=== PATIENT | male | born 1945 | race Caucasian/White ===

== ENCOUNTER 2017-03-15 14:40 | Emergency (ER) | payer MEDICARE, OTHER ==
[2017-03-15] MEDS ORDERED: BENADRYL 50 MG/ML IM ONE (15:09)
[2017-03-15] MEDS ORDERED: solu-CORTEF 250MG IM ONE (15:09)
[2017-03-15] MEDS ORDERED: BENADRYL 50 MG/ML ONE (15:12)
[2017-03-15] MEDS ORDERED: solu-CORTEF 250MG ONE (15:13)
--- NOTE | 2017-03-15 15:14 | ERPHSYRPT ---
- History of Present Illness Time Seen by Provider: 03/15/17 15:10 Source: patient, family Patient Subjective Stated Complaint: pt states for the past 5 days he developeda reaction. states nothing new to environment. pt c/o itching and redness to face anf upper trunk. Triage Nursing Assessment: pt pink, warm, dry. Breathing wnl. no stridor noted. face red with skin peeling. redness to upper trunk and under arms. Physician History: pt states for the past 5 days he developeda reaction. states nothing new to environment. pt c/o itching and redness to face anf upper trunk. Timing/Duration: day(s) (5-6 days) Severity: moderate Associated Symptoms: denies symptoms Allergies/Adverse Reactions: codeine Adverse Reaction (Intermediate, Verified 07/06/13 08:46) Nausea and Vomiting lisinopril Adverse Reaction (Intermediate, Verified 07/06/13 08:46) Cough Home Medications: Albuterol 8 gm Mdi Hfa [Ventolin Hfa MDI] 8 gm IH QID 01/08/15 [History] Aspirin 81 mg PO DAILY 01/08/15 [History] Esomeprazole Magnesium [Nexium] 20 mg PO UD 01/08/15 [History] Fluticasone/Salmeterol Disc [Advair 250-50 Diskus 14 Dose] 1 each IH BID 01/08/15 [History] Hydrochlorothiazide 12.5 mg PO DAILY 01/08/15 [History] Losartan Potassium 25 mg PO DAILY 01/08/15 [History] Metformin HCl 500 mg [Glucophage 500 MG] 500 mg PO BID 01/08/15 [History] Multivit-Min/FA/Lycopen/Lutein [Centrum Silver Tablet] 1 each PO DAILY 01/08/15 [History] Tamsulosin HCl [Flomax] 0.4 mg PO DAILY 01/08/15 [History] Tiotropium [place] Inhaler [Spiriva 18 Mcg/Cap Inhaler] 18 mcg PO DAILY [History] Zolpidem Tartrate [Ambien] 10 mg PO HS 01/08/15 [History] Desvenlafaxine Succinate [Pristiq ER] 50 mg PO DAILY 03/15/17 [History] Glipizide 10 mg [Glucotrol 10 MG] 10 mg PO DAILY 03/15/17 [History] Insulin Aspart [NovoLOG Insulin] 0 units SQ TIDWM 03/15/17 [History] Insulin Glargine,Hum.rec.anlog [Lantus] 50 unit SQ DAILY 03/15/17 [History] Hx Tetanus, Diphtheria Vaccination/Date Given: Yes (up to date) Hx Influenza Vaccination/Date Given: Yes Hx Pneumococcal Vaccination/Date Given: Yes Immunizations Up to Date: Yes - Review of Systems Constitutional: No Symptoms Eyes: No Symptoms Ears, Nose, & Throat: No Symptoms Respiratory: No Symptoms Cardiac: No Symptoms Abdominal/Gastrointestinal: No Symptoms Genitourinary Symptoms: No Symptoms Musculoskeletal: No Symptoms Skin: Rash, Skin Lesions, Dryness Neurological: No Symptoms Endocrine: No Symptoms - Past Medical History Pertinent Past Medical History: Yes Neurological History: No Pertinent History ENT History: No Pertinent History Cardiac History: High Cholesterol, Hypertension Respiratory History: COPD Endocrine Medical History: Diabetes Type II Musculoskeletal History: Other GI Medical History: GERD History: No Pertinent History Psycho-Social History: Anxiety Male Reproductive Disorders: Prostate Problems Other Medical History: Hiatal hernia - Past Surgical History Past Surgical History: Yes Neuro Surgical History: No Pertinent History Cardiac: No Pertinent History Respiratory: No Pertinent History Gastrointestinal: No Pertinent History Genitourinary: No Pertinent History Musculoskeletal: Orthopedic Surgery Male Surgical History: No Pertinent History Other Surgical History: vu shoulder surgery, nerve stimulator to back - Social History Smoking Status: Former smoker Exposure to second hand smoke: No Drug Use: none Patient Lives Alone: No - Nursing Vital Signs Nursing Vital Signs: Initial Vital Signs Temperature 98.6 F 03/15/17 14:49 Pulse Rate 109 H 03/15/17 14:49 Respiratory Rate 22 03/15/17 14:49 Blood Pressure 173/88 03/15/17 14:49 O2 Sat by Pulse Oximetry 97 03/15/17 14:49 Pain Scale Pain Intensity 5 - Physical Exam General Appearance: no apparent distress Eye Exam: PERRL/EOMI Ears, Nose, Throat Exam: normal ENT inspection Neck Exam: normal inspection Respiratory Exam: normal breath sounds Cardiovascular Exam: regular rate/rhythm Extremity Exam: normal inspection Neurologic Exam: alert, oriented x 3 Skin Exam: other (peeling skin on face, rash on torso) SpO2: 97 Oxygen Delivery: Room Air - Course Nursing assessment & vital signs reviewed: Yes Ordered Tests: Medication Summary Discontinued Medications Generic Name Dose Route Start Last Admin Trade Name Ace PRN Reason Stop Dose Admin Diphenhydramine HCl 25 mg 03/15/17 15:09 Benadryl 50 Mg/Ml IM 03/15/17 15:10 STAT ONE Hydrocortisone Sodium Succinate 250 mg 03/15/17 15:09 Solu-Cortef 250mg IM 03/15/17 15:10 STAT ONE - Progress Progress: unchanged Counseled pt/family regarding: diagnosis, need for follow-up - Departure Time of Disposition: 15:14 Departure Disposition: Home Clinical Impression: Allergic dermatitis Condition: Stable Critical Care Time: No Referrals: BRANDIE LANCASTER [Primary Care Provider] - Instructions: Seborrheic Dermatitis, Contact Dermatitis (DC) Additional Instructions: RASH 1. Depending on the reason for the rash, the instructions will differ. 2. If an antibiotic has been prescribed, take it as directed until gone. 3. If anti-fungals or shampoos are prescribed, use only as directed and follow specific instructions on package container. 4. Avoid hot showers/baths, as this may increase itching. 5. Calamine lotion or Aveeno Oatmeal baths may help itching. 6. See your family physician if these signs or symptoms persist for more than four days. Please follow the instructions given to you. Please take your medication as prescribed if given. If symptoms recur or get worse, come back to the emergency room if you cannot reach your primary care physician, or call your primary care physician for an appointment. Again if your symptoms get worse, come back to the emergency room. Thanks for visiting emergency room, and let us take care of you. Prescriptions: Methylprednisolone Packet [Medrol Dosepack] 4 mg PO UD #30 packet
[2017-03-15 15:58] VITALS: BP 175/94; PULSE 99; O2SAT 96
== END 2017-03-15 15:45 | disposition home or self-care (01) ==
LOC: ED 14:40
DX: L23.9 Allergic contact dermatitis, unspecified cause (principal)
CPT/HCPCS: 96372; 99284; J1200; J1720

== ENCOUNTER 2017-04-29 16:16 | Observation (INO) | payer MEDICARE, OTHER ==
[2017-04-29] MEDS: PROVENTIL 2.5 MG/3 ML NEB IH SCH (17:21)
[2017-04-29] MEDS: Advair Hfa 115/21 Common canister IH SCH (17:21)
[2017-04-29] MEDS ORDERED: TYLENOL 325 MG PO PRN (18:16)
[2017-04-29] MEDS ORDERED: DUONEB 0.5-3 MG/3 ml Neb IH PRN (18:20)
[2017-04-29] MEDS ORDERED: Sodium Chloride 0.9% 1000 ML 1,000 ML IV SCH (18:30)
[2017-04-29] MEDS ORDERED: Spiriva 18 Mcg/Cap Inhaler IH SCH (19:00)
--- NOTE | 2017-04-29 19:43 | XRAY ---
Indication: Short of breath, fever, and flulike illness. Comparison: January 05, 2014. PA/lateral chest again hyperinflated. No focal infiltrate, consolidation, or large effusion. Heart is not enlarged. Vascularity normal. Bony thorax intact again with mild degenerative changes and distal right clavicle resection. New spinal stimulator leads terminate T7-T8 level. Impression: Nonacute hyperinflated chest with chronic features.
[2017-04-29 20:03] LABS: BASOPHIL % 0.2 % (0.0-0.4); Basophil (Absolute #) 0.03 (0-0.4); Eosinophil % 0.6 % (0.00-5.0); Eosinophil (Absolute #) 0.09 (0-0.5); Granulocyte Absolute (ANC) 12.42 (1.4-6.9); Granulocytes % 78.6 % (36.0-66.0); Hematocrit 35.1 % (42-50); Hemoglobin 11.1 gm/dl (12.5-18.0); Lymphocyte (Absolute #) 1.95 (1.0-4.6); Lymphocytes % 12.4 % (24.0-44.0); Mean Cell Volume 80.1 fl (78-100); Mean Corpuscular Hemoglobin 25.3 pg (26-32); Mean Corpuscular Hgb Concent. 31.6 g/dl (32-36); Mean Platelet Volume 10.1 fl (6-9.5); Monocyte (Absolute #) 1.29 (0.0-1.3); Monocytes % 8.2 % (0.0-12.0); Platelet Count 228 K/mm3 (150-450); Red Blood Count 4.38 M/mm3 (4.1-5.6); Red Cell Distribution Width 14.3 % (11.5-14.0); White Blood Count 15.8 K/mm3 (4.0-10.5)
[2017-04-29 20:27] LABS: ALBUMIN 3.2 g/dL (3.4-5.0); ALKALINE PHOSPHATASE 78 U/L (46-116); ANION GAP 16.3 MEQ/L (5-15); BLOOD UREA NITROGEN 12 mg/dL (9-20); CHLORIDE 100 mEq/L (98-107); Calcium 8.8 mg/dL (8.5-10.1); Carbon Dioxide 25.1 mEq/L (21-32); Creatinine 1 1.08 mg/dl (0.55-1.30); Glucose 103 MG/DL (70-110); NT PRO BNP 55 pg/ml (0-125); Potassium 3.9 mEq/L (3.5-5.1); SGOT/AST 27 U/L (15-37); SGPT/ALT 40 U/L (12-78); SODIUM 138 mEq/L (136-145); Total Protein 8.3 gm/dL (6.4-8.2)
[2017-04-29 20:56] LABS: INFLUENZA A NEGATIVE (NEGATIVE); INFLUENZA B NEGATIVE (NEGATIVE); RESPIRATORY SYNCTIAL VIRUS NEGATIVE (Negative)
[2017-04-29] MEDS ORDERED: Glucophage 500 MG PO SCH (22:00)
[2017-04-29] MEDS ORDERED: Ambien 10 MG PO SCH (22:00)
[2017-04-29] MEDS ORDERED: ZOCOR 20MG PO SCH (22:00)
[2017-04-29] MEDS ORDERED: Levofloxacin 500MG/100ML D5W 500 MG/100 ML BAG IV SCH (22:00)
[2017-04-30] MEDS: PROVENTIL 2.5 MG/3 ML NEB IH SCH (05:40)
[2017-04-30] MEDS: Advair Hfa 115/21 Common canister IH SCH (05:41)
[2017-04-30 05:47] VITALS: PULSE 92
[2017-04-30] MEDS ORDERED: Glucophage 500 MG PO SCH (08:00)
[2017-04-30 08:05] VITALS: BP 145/67; O2SAT 93
[2017-04-30] MEDS ORDERED: NovoLOG Insulin SQ SCH (08:30)
[2017-04-30] MEDS ORDERED: NON-FORMULARY ITEM (Esomeprazole Magnesium [Nexium] 20 MG) PO SCH (08:45)
--- NOTE | 2017-04-30 09:20 | PCM.DCORD ---
- Discharge Discharge Date: 04/30/17 Disposition: Home, Self-Care Condition: Good Prescriptions: New Levofloxacin [Levofloxacin 500 MG Tablet] 500 mg PO DAILY #6 tablet Esomeprazole Magnesium [Nexium] 40 mg PO DAILY #30 capsule. Ranitidine HCl 150 mg PO BID #60 tablet Continue Fluticasone/Salmeterol Disc [Advair 250-50 Diskus 14 Dose] 1 each IH BID Multivit-Min/FA/Lycopen/Lutein [Centrum Silver Tablet] 1 each PO DAILY Aspirin 81 mg PO DAILY Albuterol 8 gm Mdi Hfa [Ventolin Hfa MDI] 8 gm IH QID Tamsulosin HCl [Flomax] 0.4 mg PO DAILY Tiotropium [place] Inhaler [Spiriva 18 Mcg/Cap Inhaler] 18 mcg PO DAILY Metformin HCl 500 mg [Glucophage 500 MG] 500 mg PO BID Insulin Aspart [NovoLOG Insulin] 30 units SQ TIDWM Desvenlafaxine Succinate [Pristiq] 50 mg PO DAILY Insulin Glargine,Hum.rec.anlog [Lantus] 55 unit SQ DAILY Glipizide 10 mg [Glucotrol 10 MG] 10 mg PO DAILY Zolpidem Tartrate [Ambien Cr] 12.5 mg PO HS Metoprolol Succinate 100 mg PO DAILY Atorvastatin Calcium 40 mg PO HS Discontinued Esomeprazole Magnesium [Nexium] 20 mg PO UD Additional Instructions: Keep your appointment with the GI clinic tomorrow. Follow up with: BRANDIE LANCASTER [Primary Care Provider] - 1 Week
[2017-04-30] MEDS ORDERED: ECOTRIN 81 MG PO SCH (10:00)
[2017-04-30] MEDS ORDERED: Glucotrol 5 MG PO SCH (10:00)
[2017-04-30] MEDS ORDERED: PRISTIQ ER PO SCH (10:00)
[2017-04-30] MEDS ORDERED: BABY ASPIRIN 81 MG CHEW PO SCH (10:00)
[2017-04-30] MEDS ORDERED: NON-FORMULARY ITEM (Multivit-Min/Fa/Lycopen/Lutein [Centrum Silver Tablet] 1 EACH) PO SCH (10:00)
[2017-04-30] MEDS ORDERED: THERAGRAN MULTIVITAMIN PO SCH (10:00)
[2017-04-30] MEDS ORDERED: Protonix 40MG Tablet PO SCH (10:00)
[2017-04-30] MEDS ORDERED: Lantus Insulin SQ SCH (10:00)
[2017-04-30] MEDS ORDERED: Toprol Xl 100 MG PO SCH (10:00)
[2017-04-30] MEDS ORDERED: Glucotrol 10 MG PO SCH (10:00)
[2017-04-30] MEDS ORDERED: Flomax 0.4 MG PO SCH (10:00)
[2017-04-30] MEDS ORDERED: Levofloxacin 500MG/100ML D5W 500 MG/100 ML BAG IV SCH (22:00)
--- NOTE | 2017-05-01 08:19 | SSS ---
ADMISSION DIAGNOSES: 1) Dehydration. 2) Influenza-like illness. DISCHARGE DIAGNOSES: 1) DEHYDRATION. 2) PNEUMONIA. 3) DYSPHAGIA. HOSPITAL COURSE: This is a 71 year old man who presented to my clinic yesterday. He complained of one day history of cough, fever and muscle aches. He reports that he had been able to take some fluids but not as much as he normally would as he has had some problems swallowing. He had already referred to a [facility] for this and has an upcoming appointment tomorrow to see the manager home nurse practitioner concerning this. He reported a temperature up to 100F. He has not had any sick contacts at home but had gone to [facility] yesterday. He reports his heart rate was 120 when he was first checked here in my office. He had driven himself to the hospital and our clinic. Influenza A and B swab was checked and was negative. He continued to be tachycardic with the heart rate around 110. I was concerned that he was dehydrated so he was asked to come to the hospital for direct admission for further evaluation and treatment which he was agreeable to doing. REVIEW OF SYSTEMS: He had difficulty swallowing feeling like something is getting stuck in his throat and a burning pain. Today his reports that he is not eating very much but he was able to eat a little bit here for breakfast in the hospital with some diarrhea this morning that had just started. No vomiting. No chest pain. No shortness of breath. He reports the cough and myalgia is a little bit better. No headaches. PAST MEDICAL HISTORY: Gastroesophageal reflux, allergies, anxiety, diabetes mellitus type 2 currently well controlled, hypertension. Chronic obstructive pulmonary disease and he sees Dr. Andrew Rose for this and wears 2 liters at home. He has a spinal cord stimulator, obstructive sleep apnea which he wears CPAP 14 cm at home. PAST SURGICAL HISTORY: Colonoscopy 2014 with hyperplastic polyp. Colonoscopy, vasectomy, circumcision, rotator cuff bilateral repair, spinal cord stimulator. MEDICATIONS: Albuterol 2 puffs every four hours as needed, aspirin 81 mg p.o. daily, atorvastatin 40 mg p.o. q.h.s., Pristiq 50 mg p.o. daily, Nexium 20 mg daily, Advair 250/50 mg 1 puff b.i.d., Glipizide 10 mg p.o. daily, NovoLog 30 units subcutaneously t.i.d. with meals, Lantus 55 units subcutaneously daily, Metformin 500 mg p.o. b.i.d., metoprolol succinate 100 mg p.o. daily, multivitamin 1 tablet p.o. daily, Tamsulosin 0.4 mg daily, Spiriva 18 mcg p.o. daily, Ambien CR 12.5 mg p.o. q.h.s. ALLERGIES: CODEINE, LISINOPRIL, MOLD. SOCIAL HISTORY: He is and lives with his . No tobacco used currently. History of tobacco use 40 pack year history. No alcohol use. FAMILY HISTORY: His father had arthritis and heart disease. His mother had Alzheimer's. PHYSICAL EXAMINATION: VITAL SIGNS: Temperature current 98.5F, temperature max 100.4F, heart rate 85 to 112 currently 92, respiratory rate 17 to 20 currently 20, blood pressure 135 to 149 over 66 to 79, weight 129 kg. Oxygen saturation 93 to 94% on 3 liters nasal cannula. GENERAL: The patient is a pleasant talkative man sitting up in bed and in no acute distress. CVS: He has a regular rate and rhythm. No murmurs, gallops or rubs are appreciated. CHEST: Clear to auscultation bilaterally. No crackles or wheezes. ABDOMEN: Soft, obese, nontender, nondistended with normal bowel sounds. SKIN: Warm, dry and intact. EXTREMITIES: No clubbing, cyanosis or edema. LABORATORY DATA AND TESTS: His white blood cell count was elevated at 15,800 with 78% granulocytes, 12% lymphocytes. Hemoglobin A1C 6.4, albumin 3.2, total protein 8.2. Influenza A, B and respiratory syncytial virus were negative at the hospital. Chest x-ray read as nonacute hyperinflated chest with chronic features. EKG was unreadable due to his spinal cord stimulator. ASSESSMENT AND PLAN: 1) DEHYDRATION: He was given D5 half normal saline at 80 ml/hour overnight. His heart rate has improved. He reports that he was able to eat some Cream of Wheat. He is going to see the gastroenterology nurse practitioner here in [place] tomorrow for further evaluation of his swallowing problems. 2) INFLUENZA-LIKE ILLNESS: Again, his swabs were negative. His white blood cell count was elevated with left shift so most likely a bacterial infection. 3) PNEUMONIA CLINICAL DIAGNOSIS: He was given levofloxacin IV 500 mg and will finish out six more days of levofloxacin 500 mg IV at home. He is on his home dose of oxygen at 3 liters. He would like to go home. His blood cultures are pending. I will let him be discharged to home. 4) DYSPHAGIA: Increase Nexium and start ranitidine and follow up with [facility] home. DISCHARGE MEDICATIONS: He is resuming all of his home medications and increasing Nexium to 40 mg daily, adding ranitidine 150 mg p.o. b.i.d. and levofloxacin 500 mg p.o. daily for six days.
== END 2017-04-30 10:53 | disposition home or self-care (01) ==
LOC: MED SURG 16:25
PROVIDERS: ADMIT Internal Medicine; ATTEND Internal Medicine
DX: E86.0 Dehydration (principal); J18.9 Pneumonia, unspecified organism; R13.10 Dysphagia, unspecified; J11.1 Influenza due to unidentified influenza virus with other respiratory manifestations; I10 Essential (primary) hypertension; K21.9 Gastro-esophageal reflux disease without esophagitis; F41.9 Anxiety disorder, unspecified; E11.9 Type 2 diabetes mellitus without complications; G47.33 Obstructive sleep apnea (adult) (pediatric); J44.9 Chronic obstructive pulmonary disease, unspecified
CPT/HCPCS: 36415; 71046; 80053; 82962; 83036; 83605; 83880; 85025; 87040; 87400; 87631; 94640; 94660; 94760; G0378; J1956; A9270-GY

== ENCOUNTER 2018-07-30 10:08 | Observation (INO) | payer MEDICARE, OTHER ==
[2018-07-30] MEDS ORDERED: Sodium Chloride 0.9% 1000 ML 1,000 ML IV STA ×2 (11:04→12:09)
[2018-07-30] MEDS ORDERED: DUONEB 0.5-3 MG/3 ml Neb IH ONE ×2 (11:11→11:34)
[2018-07-30] MEDS ORDERED: Zofran 4 MG/2 ML VIAL IV ONE (11:12)
[2018-07-30] MEDS ORDERED: Sodium Chloride 0.9% 1000 ML 1,000 ML IV SCH ×2 (11:15→14:30)
[2018-07-30 11:28] LABS: BASOPHIL % 0.1 % (0.0-0.4); Basophil (Absolute #) 0.01 (0-0.4); Eosinophil % 0.3 % (0.00-5.0); Eosinophil (Absolute #) 0.02 (0-0.5); Granulocyte Absolute (ANC) 5.53 (1.4-6.9); Granulocytes % 81.6 % (36.0-66.0); Hematocrit 29.1 % (42-50); Hemoglobin 9.3 gm/dl (12.5-18.0); Lymphocyte (Absolute #) 0.21 (1.0-4.6); Lymphocytes % 3.1 % (24.0-44.0); Mean Cell Volume 89.3 fl (78-100); Mean Corpuscular Hemoglobin 28.5 pg (26-32); Monocyte (Absolute #) 1.01 (0.0-1.3); Monocytes % 14.9 % (0.0-12.0); Platelet Count 104 K/mm3 (150-450); Red Blood Count 3.26 M/mm3 (4.1-5.6); Red Cell Distribution Width 19.5 % (11.5-14.0); White Blood Count 6.8 K/mm3 (4.0-10.5)
[2018-07-30] MEDS ORDERED: Zofran 4 MG/2 ML VIAL ONE (11:28)
[2018-07-30 11:32] LABS: Appearance CLEAR (CLEAR); Bilirubin NEGATIVE (NEGATIVE); Blood NEGATIVE Ery/ul (0-5); Glucose NEGATIVE (NEGATIVE); Ketones TRACE (NEGATIVE); Leukocyte Esterase NEGATIVE (NEGATIVE); Nitrite NEGATIVE (NEGATIVE); Protein,Urine Dip NEGATIVE (Negative); Urobilinogen NEGATIVE mg/dL (0-1); WBC 0-2 /HPF (0-5)
--- NOTE | 2018-07-30 11:34 | XRAY ---
Indication: Possible sepsis. Comparison: April 29, 2017. Portable chest again demonstrates normal heart and lungs with new right Port-A-Cath. Bony thorax intact again with spinal stimulator leads terminating mid thoracic level, mild degenerative changes, and distal right clavicle resection. Impression: Nonacute chest with chronic features.
[2018-07-30 11:35] LABS: INR 1.53 (0.8-3.0); PROTIME 17.9 SECONDS (8.83-12.87)
[2018-07-30 11:36] LABS: Bacteria NONE SEEN /HPF (NEGATIVE)
[2018-07-30 11:37] LABS: PTT 24.7 SECONDS (24.1-36.1)
[2018-07-30 11:40] LABS: ALKALINE PHOSPHATASE 191 U/L (38-126); ANION GAP 13.8 MEQ/L (5-15); BLOOD UREA NITROGEN 10 mg/dL (9-20); CHLORIDE 100 mmol/L (98-107); Calcium 8.4 mg/dL (8.4-10.2); Carbon Dioxide 27 mmol/L (22-30); Creatinine 1 0.56 mg/dL (0.66-1.25); Glucose 141 mg/dL (74-106); Potassium 3.8 mmol/L (3.5-5.1); SGOT/AST 160 U/L (17-59); SGPT/ALT 48 U/L (0-50); SODIUM 137 mmol/L (137-145); Total Protein 6.6 g/dL (6.3-8.2)
[2018-07-30] MEDS ORDERED: Levofloxacin 500MG/100ML D5W 500 MG/100 ML BAG IV STA (12:09)
[2018-07-30] MEDS ORDERED: Levofloxacin 500MG/100ML D5W 500 MG/100 ML BAG IV ONE (12:27)
--- NOTE | 2018-07-30 13:26 | XRAY ---
Indication: Unsteady gait. Falls. History esophageal and liver cancer. Multiple contiguous axial images obtained through the head without contrast. Comparison: None Age-appropriate global atrophy and mild periventricular degenerative micro-ischemia bilaterally. No acute intracranial hemorrhage, abnormal extra-axial fluid collection, or mass effect. Fourth ventricle is midline without hydrocephalus. Bony calvarium intact. Visualized paranasal sinuses and mastoid air cells are clear. Impression: Nonacute senile brain. Lack of contrast precludes evaluation for metastatic process. CTDI 67.60
--- NOTE | 2018-07-30 13:40 | ERPHSYRPT ---
- History of Present Illness Time Seen by Provider: 07/30/18 10:40 Source: patient Exam Limitations: clinical condition Patient Subjective Stated Complaint: pt here for weakness for a couple days now , pt just finished radiation yesterday and chemo was july 08. he got iron last week and missed hes last chemo due to not feeling well. 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 RECENTLY FINISHED 29 COURSES OF RADIATION THERAPY, HAS BEEN RECEIVING CHEMOTHERAPY EVERY 2 WEEKS FOR THE PAST YEAR, UNABLE TO RECEIVE CHEMOTHERAPY THIS WEEK DUE TO WEAKNESS AND UNSTEADY GAIT. HAS OCCASIONAL EMESIS, DENIES HEADACHE, BLURRED VISION, COUGH, DIFFICULTY BREATHING, DIARRHEA OR FEVER Timing/Duration: day(s) Severity: moderate Modifying Factors: Improves With: immobilization Associated Symptoms: weakness Allergies/Adverse Reactions: Yeast Allergy (Verified 07/30/18 10:41) codeine Adverse Reaction (Intermediate, Verified 07/30/18 10:41) Nausea and Vomiting lisinopril Adverse Reaction (Intermediate, Verified 07/30/18 10:41) Cough mold Allergy (Uncoded 07/30/18 10:41) Home Medications: Albuterol 8 gm Mdi Hfa [Ventolin Hfa MDI] 8 gm IH QID 01/08/15 [History] Aspirin 81 mg PO DAILY 01/08/15 [History] Fluticasone/Salmeterol Disc [Advair 250-50 Diskus 14 Dose] 1 each IH BID 01/08/15 [History] Metformin HCl 500 mg [Glucophage 500 MG] 500 mg PO BID 01/08/15 [History] Multivit-Min/FA/Lycopen/Lutein [Centrum Silver Tablet] 1 each PO DAILY 01/08/15 [History] Tamsulosin HCl [Flomax] 0.4 mg PO DAILY 01/08/15 [History] Tiotropium [place] Inhaler [Spiriva 18 Mcg/Cap Inhaler] 18 mcg PO DAILY [History] Desvenlafaxine Succinate [Pristiq] 50 mg PO DAILY 03/15/17 [History] Glipizide 10 mg [Glucotrol 10 MG] 10 mg PO DAILY 03/15/17 [History] Insulin Aspart [NovoLOG Insulin] 30 units SQ TIDWM 03/15/17 [History] Insulin Glargine,Hum.rec.anlog [Lantus] 55 unit SQ DAILY 03/15/17 [History] Atorvastatin Calcium 40 mg PO HS 04/29/17 [History] Metoprolol Succinate 100 mg PO DAILY 04/29/17 [History] Zolpidem Tartrate [Ambien Cr] 12.5 mg PO HS 04/29/17 [History] Hx Tetanus, Diphtheria Vaccination/Date Given: Yes (up to date) Hx Influenza Vaccination/Date Given: Yes Hx Pneumococcal Vaccination/Date Given: Yes Immunizations Up to Date: Yes - Past Medical History Pertinent Past Medical History: Yes Neurological History: No Pertinent History ENT History: Cataracts, Glaucoma, Other Cardiac History: High Cholesterol, Hypertension Respiratory History: COPD, Pneumonia, Sleep Apnea Endocrine Medical History: Diabetes Type II Musculoskeletal History: Arthritis, Degenerative Disk Disease, Other GI Medical History: Esophageal Disorder, GERD, Hemorrhoids, Polyps History: No Pertinent History Psycho-Social History: Anxiety Male Reproductive Disorders: Prostate Problems Other Medical History: Hiatal hernia, rotator cuff, liver and esphageal cancer - Past Surgical History Past Surgical History: Yes Neuro Surgical History: No Pertinent History Cardiac: No Pertinent History Respiratory: No Pertinent History Gastrointestinal: No Pertinent History Genitourinary: No Pertinent History Musculoskeletal: Orthopedic Surgery Male Surgical History: No Pertinent History Other Surgical History: vu shoulder surgery, nerve stimulator to back, larnyx surg, post a cath - Social History Smoking Status: Former smoker Exposure to second hand smoke: No Drug Use: none Patient Lives Alone: No - Nursing Vital Signs Nursing Vital Signs: Initial Vital Signs Temperature 97.0 F 07/30/18 10:33 Pulse Rate 125 H 07/30/18 10:33 Respiratory Rate 20 07/30/18 10:33 Blood Pressure 126/85 07/30/18 10:33 O2 Sat by Pulse Oximetry 97 07/30/18 10:33 Pain Scale Pain Intensity 3 - Physical Exam SpO2: 98 - Course EKG Interpreted by Me: RATE, Sinus Rhythm, Sinus Tach, NORMAL AXIS - Radiology Exams Chest X-ray Interpretation: Discussed w/ radiologist, Negative, No Infiltrates - CT Exams Head CT Interpretation: Discussed w/radiologist, No/Intracranial Hemorrhag Ordered Tests: Active Orders 24 hr Category Date Time Status [employer] STAT Care 07/30/18 11:03 Active EKG-ER Only STAT Care 07/30/18 11:03 Active IV Insertion STAT Care 07/30/18 11:03 Active NPO (ED) STAT Care 07/30/18 12:13 Active Oxygen-ED Only Nasal Cannula 2 lpm Care 07/30/18 11:04 Active Pulse Oximetry (ED) STAT Care 07/30/18 11:03 Active CHEST 1 VIEW (PORTABLE) Stat Exams 07/30/18 11:03 Completed HEAD WITHOUT CONTRAST [CT] Stat Exams 07/30/18 12:13 Completed BLOOD CULTURE Stat Lab 07/30/18 11:25 Received BNP [NT PRO BNP] Stat Lab 07/30/18 11:20 Completed CBC W DIFF Stat Lab 07/30/18 11:15 Completed CMP Stat Lab 07/30/18 11:15 Completed CULTURE,URINE Stat Lab 07/30/18 11:23 Ordered Lactic Acid Stat Lab 07/30/18 11:20 Completed Lactic Acid Stat Lab 07/30/18 13:37 Ordered MAGNESIUM Stat Lab 07/30/18 12:17 Completed PROTIME WITH INR Stat Lab 07/30/18 11:15 Completed PTT Stat Lab 07/30/18 11:15 Completed TROPONIN Q3H Lab 07/30/18 11:15 Completed TROPONIN Q3H Lab 07/30/18 14:15 Ordered TROPONIN Q3H Lab 07/30/18 17:15 Ordered TROPONIN Q3H Lab 07/30/18 20:15 Ordered TROPONIN Q3H Lab 07/30/18 23:15 Ordered Urinalysis with Microscopy Stat Lab 07/30/18 11:23 Completed Peak Expiratory Flow Rate ONCE RT 07/30/18 11:45 Completed Respiratory Therapy Assessment DAILY RT 07/30/18 11:45 Completed Medication Summary Generic Name Dose Route Start Last Admin Trade Name Freq PRN Reason Stop Dose Admin Sodium Chloride 1,000 mls @ 30 mls/hr 07/30/18 11:15 07/30/18 11:50 Sodium Chloride 0.9% 1000 Ml IV 08/29/18 11:14 30 mls/hr .Q24H JOVANI Administration Discontinued Medications Generic Name Dose Route Start Last Admin Trade Name Rudiq PRN Reason Stop Dose Admin Albuterol/Ipratropium 3 ml 07/30/18 11:11 07/30/18 11:41 Duoneb 0.5-3 Mg/3 Ml Neb IH 07/30/18 11:12 3 ml STAT ONE Administration Albuterol/Ipratropium Confirm 07/30/18 11:34 Duoneb 0.5-3 Mg/3 Ml Neb Administered 07/30/18 11:35 Dose 3 ml IH .STK-MED ONE Sodium Chloride 1,000 mls @ 999 mls/hr 07/30/18 11:04 07/30/18 11:41 Sodium Chloride 0.9% 1000 Ml IV 07/30/18 12:04 999 mls/hr .Q1H1M STA Administration Sodium Chloride 1,000 mls @ 999 mls/hr 07/30/18 12:09 Sodium Chloride 0.9% 1000 Ml IV 07/30/18 13:09 .Q1H1M STA Levofloxacin/Dextrose 500 mg in 100 mls @ 100 mls/hr 07/30/18 12:09 07/30/18 12:30 Levofloxacin 500mg/100ml D5w IV 07/30/18 13:08 100 ml/hr STAT STA 100 mls/hr Administration Levofloxacin/Dextrose Confirm 07/30/18 12:27 Levofloxacin 500mg/100ml D5w Administered 07/30/18 12:28 Dose 500 mg in 100 mls @ ud IV .STK-MED ONE Ondansetron HCl 4 mg 07/30/18 11:12 07/30/18 11:41 Zofran 4 Mg/2 Ml Vial IV 07/30/18 11:13 4 mg STAT ONE Administration Ondansetron HCl Confirm 07/30/18 11:28 Zofran 4 Mg/2 Ml Vial Administered 07/30/18 11:29 Dose 4 mg .ROUTE .STK-MED ONE Lab/Rad Data: Laboratory Result Diagrams 07/30/18 11:15 07/30/18 11:15 Laboratory Results 07/30/18 07/30/18 07/30/18 Range/Units 12:17 11:23 11:20 WBC (4.0-10.5) K/mm3 RBC (4.1-5.6) M/mm3 Hgb (12.5-18.0) gm/dl Hct (42-50) % MCV (78-100) fl MCH (26-32) pg MCHC (32-36) g/dl RDW (11.5-14.0) % Plt Count (150-450) K/mm3 MPV (6-9.5) fl Gran % (36.0-66.0) % Eos # (Auto) (0-0.5) Absolute Lymphs (auto) (1.0-4.6) Absolute Monos (auto) (0.0-1.3) Lymphocytes % (24.0-44.0) % Monocytes % (0.0-12.0) % Eosinophils % (0.00-5.0) % Basophils % (0.0-0.4) % Absolute Granulocytes (1.4-6.9) Basophils # (0-0.4) PT (8.83-12.87) SECONDS INR (0.8-3.0) APTT (24.1-36.1) SECONDS Sodium (137-145) mmol/L Potassium (3.5-5.1) mmol/L Chloride (98-107) mmol/L Carbon Dioxide (22-30) mmol/L Anion Gap (5-15) MEQ/L BUN (9-20) mg/dL Creatinine (0.66-1.25) mg/dL Estimated GFR ML/MIN Glucose (74-106) mg/dL Lactic Acid (0.4-2.0) Calcium (8.4-10.2) mg/dL Magnesium 1.8 (1.6-2.3) mg/dL Total Bilirubin (0.2-1.3) mg/dL AST (17-59) U/L ALT (0-50) U/L Alkaline Phosphatase (38-126) U/L Troponin I (0.000-0.034) ng/mL NT-Pro-B Natriuret Pep 532 (0-900) pg/mL Serum Total Protein (6.3-8.2) g/dL Albumin (3.5-5.0) g/dL Urine Color YELLOW (YELLOW) Urine Appearance CLEAR (CLEAR) Urine pH 5.0 (5-6) Ur Specific [place] 1.010 (1.005-1.025) Urine Protein NEGATIVE (Negative) Urine Ketones TRACE (NEGATIVE) Urine Blood NEGATIVE (0-5) Baron/ul Urine Nitrite NEGATIVE (NEGATIVE) Urine Bilirubin NEGATIVE (NEGATIVE) Urine Urobilinogen NEGATIVE (0-1) mg/dL Ur Leukocyte Esterase NEGATIVE (NEGATIVE) Urine WBC (Auto) 0-2 (0-5) /HPF Urine RBC (Auto) NONE (0-2) /HPF U Epithel Cells (Auto) NONE (FEW) /HPF Urine Bacteria (Auto) NONE SEEN (NEGATIVE) /HPF Urine Glucose NEGATIVE (NEGATIVE) mg/dL Slides for Path Review 07/30/18 07/30/18 07/30/18 Range/Units 11:20 11:15 11:15 WBC (4.0-10.5) K/mm3 RBC (4.1-5.6) M/mm3 Hgb (12.5-18.0) gm/dl Hct (42-50) % MCV (78-100) fl MCH (26-32) pg MCHC (32-36) g/dl RDW (11.5-14.0) % Plt Count (150-450) K/mm3 MPV (6-9.5) fl Gran % (36.0-66.0) % Eos # (Auto) (0-0.5) Absolute Lymphs (auto) (1.0-4.6) Absolute Monos (auto) (0.0-1.3) Lymphocytes % (24.0-44.0) % Monocytes % (0.0-12.0) % Eosinophils % (0.00-5.0) % Basophils % (0.0-0.4) % Absolute Granulocytes (1.4-6.9) Basophils # (0-0.4) PT 17.9 H (8.83-12.87) SECONDS INR 1.53 (0.8-3.0) APTT 24.7 (24.1-36.1) SECONDS Sodium (137-145) mmol/L Potassium (3.5-5.1) mmol/L Chloride (98-107) mmol/L Carbon Dioxide (22-30) mmol/L Anion Gap (5-15) MEQ/L BUN (9-20) mg/dL Creatinine (0.66-1.25) mg/dL Estimated GFR ML/MIN Glucose (74-106) mg/dL Lactic Acid 4.0 H (0.4-2.0) Calcium (8.4-10.2) mg/dL Magnesium (1.6-2.3) mg/dL Total Bilirubin (0.2-1.3) mg/dL AST (17-59) U/L ALT (0-50) U/L Alkaline Phosphatase (38-126) U/L Troponin I 0.027 (0.000-0.034) ng/mL NT-Pro-B Natriuret Pep (0-900) pg/mL Serum Total Protein (6.3-8.2) g/dL Albumin (3.5-5.0) g/dL Urine Color (YELLOW) Urine Appearance (CLEAR) Urine pH (5-6) Ur Specific [place] (1.005-1.025) Urine Protein (Negative) Urine Ketones (NEGATIVE) Urine Blood (0-5) Baron/ul Urine Nitrite (NEGATIVE) Urine Bilirubin (NEGATIVE) Urine Urobilinogen (0-1) mg/dL Ur Leukocyte Esterase (NEGATIVE) Urine WBC (Auto) (0-5) /HPF Urine RBC (Auto) (0-2) /HPF U Epithel Cells (Auto) (FEW) /HPF Urine Bacteria (Auto) (NEGATIVE) /HPF Urine Glucose (NEGATIVE) mg/dL Slides for Path Review 07/30/18 07/30/18 Range/Units 11:15 11:15 WBC 6.8 (4.0-10.5) K/mm3 RBC 3.26 L (4.1-5.6) M/mm3 Hgb 9.3 L (12.5-18.0) gm/dl Hct 29.1 L (42-50) % MCV 89.3 (78-100) fl MCH 28.5 (26-32) pg MCHC 32.0 (32-36) g/dl RDW 19.5 H (11.5-14.0) % Plt Count 104 L (150-450) K/mm3 MPV 10.0 H (6-9.5) fl Gran % 81.6 H (36.0-66.0) % Eos # (Auto) 0.02 (0-0.5) Absolute Lymphs (auto) 0.21 L (1.0-4.6) Absolute Monos (auto) 1.01 (0.0-1.3) Lymphocytes % 3.1 L (24.0-44.0) % Monocytes % 14.9 H (0.0-12.0) % Eosinophils % 0.3 (0.00-5.0) % Basophils % 0.1 (0.0-0.4) % Absolute Granulocytes 5.53 (1.4-6.9) Basophils # 0.01 (0-0.4) PT (8.83-12.87) SECONDS INR (0.8-3.0) APTT (24.1-36.1) SECONDS Sodium 137 (137-145) mmol/L Potassium 3.8 (3.5-5.1) mmol/L Chloride 100 (98-107) mmol/L Carbon Dioxide 27 (22-30) mmol/L Anion Gap 13.8 (5-15) MEQ/L BUN 10 (9-20) mg/dL Creatinine 0.56 L (0.66-1.25) mg/dL Estimated GFR > 60.0 ML/MIN Glucose 141 H (74-106) mg/dL Lactic Acid (0.4-2.0) Calcium 8.4 (8.4-10.2) mg/dL Magnesium (1.6-2.3) mg/dL Total Bilirubin 1.00 (0.2-1.3) mg/dL AST 160 H (17-59) U/L ALT 48 (0-50) U/L Alkaline Phosphatase 191 H (38-126) U/L Troponin I (0.000-0.034) ng/mL NT-Pro-B Natriuret Pep (0-900) pg/mL Serum Total Protein 6.6 (6.3-8.2) g/dL Albumin 3.0 L (3.5-5.0) g/dL Urine Color (YELLOW) Urine Appearance (CLEAR) Urine pH (5-6) Ur Specific [place] (1.005-1.025) Urine Protein (Negative) Urine Ketones (NEGATIVE) Urine Blood (0-5) Baron/ul Urine Nitrite (NEGATIVE) Urine Bilirubin (NEGATIVE) Urine Urobilinogen (0-1) mg/dL Ur Leukocyte Esterase (NEGATIVE) Urine WBC (Auto) (0-5) /HPF Urine RBC (Auto) (0-2) /HPF U Epithel Cells (Auto) (FEW) /HPF Urine Bacteria (Auto) (NEGATIVE) /HPF Urine Glucose (NEGATIVE) mg/dL Slides for Path Review - Progress Progress Note: 07/30/18 14:22 LACTIC ACID 4, REPEATED AFTER NORMAL SALINE 1 LITER/HR IMPROVED TO LACTIC ACID TO 2.[address] Lancaster (DISCUSSED WITH DR LANCASTER AT 1400 FOR OBSERVATION) - Departure Departure Disposition: Observation Clinical Impression: GENERALIZED WEAKNESS, METASTATIC ESOPHAGEAL CARCINOMA Condition: Stable Critical Care Time: No Referrals: BRANDIE LANCASTER [Primary Care Provider] -
[2018-07-30 14:19] LABS: Lactic Acid 2.5 (0.4-2.0)
[2018-07-30] MEDS ORDERED: DUONEB 0.5-3 MG/3 ml Neb IH PRN (14:25)
[2018-07-30] MEDS ORDERED: Zofran 4 MG/2 ML VIAL IV PRN (14:37)
[2018-07-30] MEDS ORDERED: Glucophage 500 MG PO SCH (17:00)
[2018-07-30] MEDS ORDERED: Miralax Powder 17GM PACKET PO PRN (17:59)
[2018-07-30] MEDS ORDERED: NovoLOG Insulin SQ PRN (18:00)
[2018-07-30] MEDS ORDERED: TYLENOL 325 MG PO PRN (18:00)
[2018-07-30] MEDS ORDERED: Compazine 5 MG PO PRN (18:19)
[2018-07-30] MEDS ORDERED: ZOCOR 20MG PO SCH (22:00)
[2018-07-30] MEDS ORDERED: Ambien 10 MG PO SCH (22:00)
[2018-07-30] MEDS ORDERED: zanTAC 150 MG/10 ML SYRUP PO SCH (22:00)
[2018-07-30] MEDS: NEURONTIN 300 MG PO SCH (22:45)
[2018-07-30] MEDS: Pepcid 20 MG PO SCH (22:45)
[2018-07-30] MEDS: Ms Contin 15 MG PO SCH (22:45)
[2018-07-31] MEDS ORDERED: Cardizem IV 50 MG/10 ML IV ONE (01:18)
[2018-07-31] MEDS: NEURONTIN 300 MG PO SCH ×2 (05:38→14:58)
[2018-07-31 05:50] LABS: BASOPHIL % 0.3 % (0.0-0.4); Basophil (Absolute #) 0.02 (0-0.4); Eosinophil % 1.2 % (0.00-5.0); Eosinophil (Absolute #) 0.07 (0-0.5); Granulocyte Absolute (ANC) 4.66 (1.4-6.9); Granulocytes % 78.6 % (36.0-66.0); Hematocrit 29.9 % (42-50); Hemoglobin 9.4 gm/dl (12.5-18.0); Lymphocyte (Absolute #) 0.15 (1.0-4.6); Lymphocytes % 2.5 % (24.0-44.0); Mean Cell Volume 90.1 fl (78-100); Mean Corpuscular Hemoglobin 28.3 pg (26-32); Mean Corpuscular Hgb Concent. 31.4 g/dl (32-36); Monocyte (Absolute #) 1.03 (0.0-1.3); Monocytes % 17.4 % (0.0-12.0); Platelet Count 99 K/mm3 (150-450); Red Blood Count 3.32 M/mm3 (4.1-5.6); Red Cell Distribution Width 20.2 % (11.5-14.0); White Blood Count 5.9 K/mm3 (4.0-10.5)
[2018-07-31] MEDS ORDERED: Toprol Xl 100 MG PO ONE ×2 (06:06→19:00)
[2018-07-31 06:10] LABS: BLOOD UREA NITROGEN 7 mg/dL (9-20); CHLORIDE 102 mmol/L (98-107); Calcium 8.1 mg/dL (8.4-10.2); Carbon Dioxide 26 mmol/L (22-30); Creatinine 1 0.51 mg/dL (0.66-1.25); Glucose 138 mg/dL (74-106); Potassium 3.8 mmol/L (3.5-5.1); SODIUM 138 mmol/L (137-145)
[2018-07-31] MEDS ORDERED: Toprol Xl 50 MG PO ONE ×2 (06:10)
[2018-07-31] MEDS ORDERED: Advair Hfa 115/21 Common canister IH SCH (08:30)
[2018-07-31 09:35] LABS: Slide Review 1 YES
[2018-07-31] MEDS ORDERED: Flomax 0.4 MG PO SCH (10:00)
[2018-07-31] MEDS ORDERED: Glucotrol 5 MG PO SCH (10:00)
[2018-07-31] MEDS ORDERED: AMITIZA PO SCH (10:00)
[2018-07-31] MEDS ORDERED: NON-FORMULARY ITEM (Multivit-Min/Fa/Lycopen/Lutein [Centrum Silver Tablet] 1 EACH) PO SCH (10:00)
[2018-07-31] MEDS ORDERED: Protonix 40MG Tablet PO SCH (10:00)
[2018-07-31] MEDS ORDERED: PRISTIQ ER PO SCH (10:00)
[2018-07-31] MEDS ORDERED: THERAGRAN MULTIVITAMIN PO SCH (10:00)
[2018-07-31] MEDS ORDERED: Toprol Xl 100 MG PO SCH (10:00)
[2018-07-31] MEDS ORDERED: Levofloxacin 500MG/100ML D5W 500 MG/100 ML BAG IV SCH (10:00)
[2018-07-31] MEDS ORDERED: ADVAIR 250-50 DISKUS 14 DOSE IH SCH (10:00)
[2018-07-31] MEDS: Pepcid 20 MG PO SCH (10:06)
[2018-07-31] MEDS: Ms Contin 15 MG PO SCH ×2 (10:07→14:58)
--- NOTE | 2018-07-31 15:49 | PCM.DS ---
Discharge Summary Date of Admission: 07/30/18 14:44 Admitting Physician: BRANDIE LANCASTER Primary Care Provider: BRANDIE LANCASTER Allergies Allergies Yeast Allergy (Verified 07/30/18 10:41) codeine Adverse Reaction (Intermediate, Verified 07/30/18 10:41) Nausea and Vomiting lisinopril Adverse Reaction (Intermediate, Verified 07/30/18 10:41) Cough mold Allergy (Uncoded 07/30/18 10:41) Hospital Summary - Hospital Course Hospital Course: Pt IS A 72 yo male pt of Dr. Lancaster with metastaitic esophageal cancer (sees Dr. Lai), COPD, DM II, depression, and MESERET who was admitted through ER c/o 3falls in the past 2 weeks. He was found to have tachycardia to 115. He had not gotten his toprol yesterday so Dr. Lancaster left an order for it to be given last night, but he actually never received it, as the order went in to start today. So, last night I was called for his elevated HR into th 140s. He received a dose of cardizem 5mg IV push before I found out that he hadn't been given metoprolol. His bp was in the 120s systolic so I only gave 50mg toprol XL instead of 100mg. His BP then dropped into the 90s systolic. EKG with sinus tachycardia. He tells me that last week he became tachycardic and that he saw Dr. Gale and that's who put him on the metoprolol. Apparently he was instructed to take 1/2 po BID. Currently his HR is in the 70s when he is sitting at bedside, although it elevated into the mid 100s with walking. He did walk well without any assistance and is asking to go home. He is already dressed. He states that Dr. Lai does not have him on a blood thinner; he was taking aspirin on his own but was directed to stop taking it. He did not receive a blood thinner here. - Vitals & Intake/Output Vital Signs: Vital Signs Temperature 98.1 F 07/31/18 12:00 Pulse Rate 95 H 07/31/18 12:00 Respiratory Rate 18 07/31/18 12:00 Blood Pressure 121/55 07/31/18 12:00 O2 Sat by Pulse Oximetry 95 07/31/18 12:00 Oxygen-Last Documented O2 Percentage 3 Liters = 32% Intake & Output: Intake & Output 07/29/18 07/30/18 07/31/18 08/01/18 11:59 11:59 11:59 11:59 Intake Total 2669 480 Output Total 1350 Balance 1319 480 Weight 111.13 kg 110.5 kg - Lab Result Diagrams: 07/31/18 05:47 07/31/18 05:47 Lab Results-Last 24 Hrs: Accuchecks Date 07/31/18 Date 07/31/18 Date 07/30/18 Date 07/30/18 Time 11:30 Time 07:30 Time 21:00 Time 16:30 Accucheck Value: 141 Accucheck Value: 138 Accucheck Value: 124 Accucheck Value: 130 Lab Results-Last 24 Hours 07/30/18 07/30/18 07/30/18 Range/Units 17:45 20:25 23:37 WBC (4.0-10.5) K/mm3 RBC (4.1-5.6) M/mm3 Hgb (12.5-18.0) gm/dl Hct (42-50) % MCV (78-100) fl MCH (26-32) pg MCHC (32-36) g/dl RDW (11.5-14.0) % Plt Count (150-450) K/mm3 MPV (6-9.5) fl Gran % (36.0-66.0) % Eos # (Auto) (0-0.5) Absolute Lymphs (auto) (1.0-4.6) Absolute Monos (auto) (0.0-1.3) Lymphocytes % (24.0-44.0) % Monocytes % (0.0-12.0) % Eosinophils % (0.00-5.0) % Basophils % (0.0-0.4) % Absolute Granulocytes (1.4-6.9) Basophils # (0-0.4) Sodium (137-145) mmol/L Potassium (3.5-5.1) mmol/L Chloride (98-107) mmol/L Carbon Dioxide (22-30) mmol/L Anion Gap (5-15) MEQ/L BUN (9-20) mg/dL Creatinine (0.66-1.25) mg/dL Estimated GFR ML/MIN Glucose (74-106) mg/dL Calcium (8.4-10.2) mg/dL Troponin I 0.024 0.025 0.026 (0.000-0.034) ng/mL Slides for Path Review 07/31/18 07/31/18 Range/Units 05:47 05:47 WBC 5.9 (4.0-10.5) K/mm3 RBC 3.32 L (4.1-5.6) M/mm3 Hgb 9.4 L (12.5-18.0) gm/dl Hct 29.9 L (42-50) % MCV 90.1 (78-100) fl MCH 28.3 (26-32) pg MCHC 31.4 L (32-36) g/dl RDW 20.2 H (11.5-14.0) % Plt Count 99 L (150-450) K/mm3 MPV 10.0 H (6-9.5) fl Gran % 78.6 H (36.0-66.0) % Eos # (Auto) 0.07 (0-0.5) Absolute Lymphs (auto) 0.15 L (1.0-4.6) Absolute Monos (auto) 1.03 (0.0-1.3) Lymphocytes % 2.5 L (24.0-44.0) % Monocytes % 17.4 H (0.0-12.0) % Eosinophils % 1.2 (0.00-5.0) % Basophils % 0.3 (0.0-0.4) % Absolute Granulocytes 4.66 (1.4-6.9) Basophils # 0.02 (0-0.4) Sodium 138 (137-145) mmol/L Potassium 3.8 (3.5-5.1) mmol/L Chloride 102 (98-107) mmol/L Carbon Dioxide 26 (22-30) mmol/L Anion Gap 13.0 (5-15) MEQ/L BUN 7 L (9-20) mg/dL Creatinine 0.51 L (0.66-1.25) mg/dL Estimated GFR > 60.0 ML/MIN Glucose 138 H (74-106) mg/dL Calcium 8.1 L (8.4-10.2) mg/dL Troponin I (0.000-0.034) ng/mL Slides for Path Review YES Micro Results-Entire Visit: Microbiology 07/30/18 11:38 Urine Culture - Preliminary Clean Catch Midstream NO GROWTH TO DATE Accuchecks Date 07/31/18 Date 07/31/18 Date 07/30/18 Date 07/30/18 Time 11:30 Time 07:30 Time 21:00 Time 16:30 Accucheck Value: 141 Accucheck Value: 138 Accucheck Value: 124 Accucheck Value: 130 - Radiology Exams Ordered Rad Exams-Entire Visit: Radiology Procedures Category Date Time Status CHEST 1 VIEW (PORTABLE) Stat Exams 07/30/18 11:03 Completed HEAD WITHOUT CONTRAST [CT] Stat Exams 07/30/18 12:13 Completed - Procedures and Test Procedures and Tests throughout Hospitalization: Therapy Orders & Screens 07/30/18 11:45 Peak Expiratory Flow Rate ONCE Comment: Reason For Exam: Respiratory Therapy Assessment DAILY Comment: 07/30/18 14:25 Oxygen Nasal Cannula 2 lpm Comment: 07/30/18 15:38 Respiratory Therapy Assessment DAILY Comment: Diagnosis: GENERALIZED WEAKNESS Discharge Exam General Appearance: no apparent distress, alert Neurologic Exam: oriented x 3, cooperative Eye Exam: eyes nml inspection Respiratory Exam: normal breath sounds, lungs clear, No crackles/rales, No rhonchi, No wheezing Cardiovascular Exam: tachycardia, irregular, No murmur Gastrointestinal/Abdomen Exam: soft, normal bowel sounds, No tenderness, No mass , No guarding, No rebound Extremity Exam: normal inspection, swelling (1+ pretibial edema bilat) Skin Exam: normal color, warm, dry, No rash Final Diagnosis/Problem List - Final Discharge Diagnosis/Problem (1) Vomiting Current Visit: Yes Status: Acute Assessment & Plan: Resolved here. He was treated with levaquin, and is feeling very well, so will continue this x 8 more days po for possible intestinal infection. Code(s): R11.10 - VOMITING, UNSPECIFIED (2) Tachycardia Current Visit: Yes Status: Acute Assessment & Plan: His rate is volatile with activity, but at rest seems controlled on the metoprolol. Apparently he already saw Dr. Gale for this issue, just did not take his medication the day prior to admission. Would advise holding the metoprolol for systolic bp < 110. Code(s): R00.0 - TACHYCARDIA, UNSPECIFIED (3) Fall Current Visit: Yes Status: Acute Assessment & Plan: [place] ruled out with negative troponins x 5. Walking very well here on his own. 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 Lai. Code(s): C15.9 - MALIGNANT NEOPLASM OF ESOPHAGUS, UNSPECIFIED - Discharge Disposition: Home, Self-Care Condition: Stable Prescriptions: New Levofloxacin [Levaquin] 500 mg PO DAILY #8 tablet Continue Fluticasone/Salmeterol Disc [Advair 250-50 Diskus 14 Dose] 1 each IH BID Multivit-Min/FA/Lycopen/Lutein [Centrum Silver Tablet] 1 each PO DAILY Albuterol 8 gm Mdi Hfa [Ventolin Hfa MDI] 8 gm IH QID Tamsulosin HCl [Flomax] 0.8 mg PO DAILY Tiotropium [place] Inhaler [Spiriva 18 Mcg/Cap Inhaler] 18 mcg PO DAILY Metformin HCl 500 mg [Glucophage 500 MG] 500 mg PO BID Desvenlafaxine Succinate [Pristiq] 50 mg PO DAILY Glipizide 10 mg [Glucotrol 10 MG] 10 mg PO DAILY Zolpidem Tartrate [Ambien Cr] 12.5 mg PO HS Metoprolol Succinate 100 mg PO DAILY Atorvastatin Calcium 40 mg PO HS Ranitidine HCl 150 mg PO BID #60 tablet Hydrocodone/APAP 5-325 Tab^^^ [[place] 5-325 Tablet^^^] 1 tab PO Q8H PRN PRN PRN Reason: Pain Prochlorperazine Maleate 10 mg [Compazine 10 mg] 10 mg PO Q6H PRN PRN Reason: Nausea/Vomiting Lubiprostone [Amitiza] 48 mcg PO DAILY Gabapentin 300 mg PO Q8H Morphine Sulfate Cr 15 mg [Ms Contin 15 MG] 15 mg PO TID PRN PRN PRN Reason: Pain Additional Instructions: Hold metoprolol for systolic blood pressure (top number) less than 110. If heart rate is persistently over 140 or if you have chest pain or shortness of breath, go to ER immediately. Follow up with: BRANDIE LANCASTER [Primary Care Provider] - 08/04/18 8:45 am
[2018-07-31 16:15] VITALS: BP 98/46; PULSE 96; O2SAT 96
--- NOTE | 2018-08-02 07:52 | HP ---
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 He sees oncologist, Dr. Lai. The patient reports that he has had three falls in the past two weeks with the last one being last night. He reports he was up at 0300 hours in his garage trying to get the generator started as the electricity had gone out. He denies losing consciousness but states there is just generalized weakness and he falls. He thinks he may have bumped his head a little bit on the left side. He denies any headaches. He reports that he thinks that he laid on the floor for about an hour after falling as he just did not feel like he had enough strength to get himself back up. He is continuing with treatment for his esophageal cancer with radiation and chemotherapy and has an appointment coming up Thursday with his oncologist. He reports a continued decreased appetite and not taking much in. He reports pain just below his sternum that is chronic which he takes morphine for and states this usually controls his pain fairly well. In the emergency department, he had a head CT that was read as negative. It was a noncontrast study. He was found to be tachycardic, a slightly elevated lactate level but no signs of infection. REVIEW OF SYSTEMS: The patient reports constipation. No diarrhea. The epigastric pain, generalized weakness but no focal weakness. No headaches. No nausea or vomiting. No rashes. Mild lower extremity edema. No chest pain. He wears oxygen at baseline. PAST MEDICAL HISTORY: Gastroesophageal reflux. Allergies. Anxiety. Chronic obstructive pulmonary disease. He is on 3 liters of oxygen by nasal cannula at home. Esophageal adenocarcinoma. He sees Dr. Nichole and Dr. Lai. Diabetes mellitus type 2. Hypertension. Obstructive sleep apnea. History of a spinal cord stimulator being placed and hearing loss. PAST SURGICAL HISTORY: Upper endoscopy last being January 2018. Colonoscopy 2014 with a small rectosigmoid polyp. Vasectomy. Circumcision. Rotator cuff repair. Spinal cord stimulator 2014. MEDICATIONS: Please see the home medication reconciliation list which I have reviewed. ALLERGIES: YEAST. CODEINE. LISINOPRIL. MOLD. SOCIAL HISTORY: He is a former smoker. He smoked for 40 years. He is and lives with his . FAMILY HISTORY: Noncontributory. PHYSICAL EXAMINATION: VITAL SIGNS: Temperature current 98.7F, heart rate 100, respiratory rate 18, blood pressure 151/67. Oxygen saturation 96% on 3 liters. GENERAL: The patient is sitting up in his chair in no acute distress a pleasant talkative man. CVS: He is tachycardic with a regular rhythm. No murmurs, gallops or rubs are appreciated. CHEST: Fine crackles at the bases bilaterally. No wheezing. No retractions. No tachypnea. His port is accessed on the right side of his chest. ABDOMEN: Obese with mild epigastric tenderness, soft, normal bowel sounds. EXTREMITIES: Trace edema bilaterally. No clubbing or cyanosis. SKIN: Warm, dry and intact. LABORATORY DATA AND TESTS: Hemoglobin 9.3, PLT count 104,000, white blood cells 6.8. International normalized ratio 1.5. Creatinine 0.56. Lactic acid repeat was 2.5. AST 160, ALT 48. UA was negative. Head CT with no acute findings. Please see the radiologist report for the complete dictation. Chest x-ray nonacute chest with chronic features. Please see the radiologist report for the full dictation. EKG heart rate 115 sinus rhythm with nonspecific T-wave changes in III and aVF. ASSESSMENT AND PLAN: 1) FALL: He is thinking some kind of LifeLine at home. Will place him on fall precautions here. We may need to consider MRI of his brain as an outpatient as that will be unavailable here at this hospital now until Thursday. 2) NEAR SYNCOPE: He is on telemetry and being ruled out for acute myocardial infarction. Continue with close monitoring 3) GENERALIZED WEAKNESS: He is agreeable to home health and I filled out the [id number] form. 4) SINUS TACHYCARDIA: Will get his metoprolol dose now and continue with general rehydration. 5) METASTATIC ESOPHAGEAL CANCER: He follows with his oncologist, Dr. Lai and greenskeeper, Dr. Nichole. 6) DIABETES MELLITUS TYPE 2: Will continue with Glipizide, hold Metformin, Accu-Chek, low dose sliding scale of insulin if needed. 7) CONSTIPATION: I ordered MiraLAX as needed. He also has Amitiza ordered. 8) CHRONIC PAIN FROM METASTATIC CANCER: Will continue with morphine scheduled. 9) INSOMNIA: Will continue with Ambien.
== END 2018-07-31 16:45 | disposition home or self-care (01) ==
LOC: ED 10:08 → MED SURG 14:44
PROVIDERS: ADMIT Internal Medicine; ATTEND Internal Medicine
DX: R11.10 Vomiting, unspecified (principal); R00.0 Tachycardia, unspecified; C15.9 Malignant neoplasm of esophagus, unspecified; G89.3 Neoplasm related pain (acute) (chronic); R53.1 Weakness; I10 Essential (primary) hypertension; G47.00 Insomnia, unspecified; G47.33 Obstructive sleep apnea (adult) (pediatric); K59.00 Constipation, unspecified; R55 Syncope and collapse; E11.9 Type 2 diabetes mellitus without complications; W19.XXXA Unspecified fall, initial encounter; Z79.899 Other long term (current) drug therapy; Z99.81 Dependence on supplemental oxygen
CPT/HCPCS: 36415; 70450; 71045; 80048; 80053; 81001; 82962; 83605; 83735; 83880; 84484; 85025; 85610; 85730; 87040; 87086; 93005; 93041; 94150; 94640; 94760; 94762; 96360; 96361; 96365; 96374; 99285; J1642; J1956; J2405; A9270-GY

== ENCOUNTER 2018-08-01 11:10 | Emergency (ER) | payer MEDICARE, OTHER ==
[2018-08-01] MEDS ORDERED: Sodium Chloride 0.9% 1000 ML 1,000 ML IV STA (11:36)
--- NOTE | 2018-08-01 11:45 | ERPHSYRPT ---
- History of Present Illness Time Seen by Provider: 08/01/18 11:42 Source: patient, family Exam Limitations: no limitations Patient Subjective Stated Complaint: Discharged yesterday from [facility] due to weakness, HR got into the 180's, denies chest pain, N&V, Triage Nursing Assessment: Pt brought into the ER via a wheelchair, denies pain , weak, N&V at home, denies N&V at this time, heart rhythm irregular, bilateral lower edema, esophageal and liver cancer and currently doing chemo Physician History: 72-year-old male with significant past medical history of hypertension, coronary artery disease, supraventricular tachycardia, recently was discharged from [facility] yesterday where he was admitted with the same symptoms and his metoprolol was changed to twice a day by the brake operator helper, Dr. montejo, patient started having a more palpitation today, so he came to the emergency room. He denies any chest pain, nausea, vomiting or diaphoresis. Timing/Duration: today Activities at Onset: none Severity of Pain-Max: none Severity of Pain-Current: none Modifying Factors: Improves With: nothing Nitro Today/Relief: no nitro taken today Aspirin Treatment Today: no aspirin today Associated Symptoms: denies symptoms Prior Chest Pain/Cardiac Workup: recently seen/treated Allergies/Adverse Reactions: Yeast Allergy (Verified 08/01/18 11:40) codeine Adverse Reaction (Intermediate, Verified 08/01/18 11:40) Nausea and Vomiting lisinopril Adverse Reaction (Intermediate, Verified 08/01/18 11:40) Cough mold Allergy (Uncoded 08/01/18 11:40) Home Medications: Albuterol 8 gm Mdi Hfa [Ventolin Hfa MDI] 8 gm IH QID 01/08/15 [History] Fluticasone/Salmeterol Disc [Advair 250-50 Diskus 14 Dose] 1 each IH BID 01/08/15 [History] Metformin HCl 500 mg [Glucophage 500 MG] 500 mg PO BID 01/08/15 [History] Multivit-Min/FA/Lycopen/Lutein [Centrum Silver Tablet] 1 each PO DAILY 01/08/15 [History] Tamsulosin HCl [Flomax] 0.8 mg PO DAILY 11/09/15 [History] Tiotropium [place] Inhaler [Spiriva 18 Mcg/Cap Inhaler] 18 mcg PO DAILY [History] Desvenlafaxine Succinate [Pristiq] 50 mg PO DAILY 03/15/17 [History] Glipizide 10 mg [Glucotrol 10 MG] 10 mg PO DAILY 03/15/17 [History] Atorvastatin Calcium 40 mg PO HS 04/29/17 [History] Metoprolol Succinate 100 mg PO DAILY 04/29/17 [History] Zolpidem Tartrate [Ambien Cr] 12.5 mg PO HS 04/29/17 [History] Gabapentin 300 mg PO Q8H 07/30/18 [History] Hydrocodone/APAP 5-325 Tab^^^ [Sapphire 5-325 Tablet^^^] 1 tab PO Q8H PRN PRN 07/30 [History] Lubiprostone [Amitiza] 48 mcg PO DAILY 07/30/18 [History] Morphine Sulfate Cr 15 mg [Ms Contin 15 MG] 15 mg PO TID PRN PRN 07/30/18 [History] Prochlorperazine Maleate 10 mg [Compazine 10 mg] 10 mg PO Q6H PRN 07/30/18 [ History] Hx Tetanus, Diphtheria Vaccination/Date Given: Yes (up to date) Hx Influenza Vaccination/Date Given: Yes Hx Pneumococcal Vaccination/Date Given: Yes - Review of Systems Constitutional: No Fever, No Chills Eyes: No Symptoms Ears, Nose, & Throat: No Symptoms Respiratory: No Cough, No Dyspnea Cardiac: Palpitations, No Chest Pain, No Edema, No Syncope Abdominal/Gastrointestinal: No Abdominal Pain, No Nausea, No Vomiting, No Diarrhea Genitourinary Symptoms: No Dysuria Musculoskeletal: No Back Pain, No Neck Pain Skin: No Rash Neurological: No Dizziness, No Focal Weakness, No Sensory Changes Psychological: No Symptoms Endocrine: No Symptoms All Other Systems: Reviewed and Negative - Past Medical History Pertinent Past Medical History: Yes Neurological History: No Pertinent History ENT History: Macular Degeneration Cardiac History: High Cholesterol, Hypertension Respiratory History: COPD, Pneumonia, Sleep Apnea Endocrine Medical History: Diabetes Type II Musculoskeletal History: Arthritis, Degenerative Disk Disease, Other GI Medical History: Esophageal Disorder, GERD, Hemorrhoids, Polyps History: No Pertinent History Psycho-Social History: Anxiety Male Reproductive Disorders: Prostate Problems Other Medical History: Hiatal hernia, rotator cuff, liver and esphageal cancer - Past Surgical History Past Surgical History: Yes Neuro Surgical History: No Pertinent History Cardiac: No Pertinent History Respiratory: No Pertinent History Gastrointestinal: No Pertinent History Genitourinary: No Pertinent History Musculoskeletal: Orthopedic Surgery Male Surgical History: No Pertinent History Other Surgical History: vu shoulder surgery, nerve stimulator to back, larnyx surg, power port placement - Social History Smoking Status: Former smoker Exposure to second hand smoke: No Drug Use: none Patient Lives Alone: No - Nursing Vital Signs Nursing Vital Signs: Initial Vital Signs Temperature 97.6 F 08/01/18 11:21 Pulse Rate 115 H 08/01/18 11:21 Respiratory Rate 28 H 08/01/18 11:21 Blood Pressure 132/79 08/01/18 11:21 O2 Sat by Pulse Oximetry 98 08/01/18 11:21 Pain Scale Pain Intensity 0 - Physical Exam General Appearance: no apparent distress, alert Eye Exam: PERRL/EOMI, eyes nml inspection Ears, Nose, Throat Exam: normal ENT inspection, moist mucous membranes Neck Exam: normal inspection, non-tender, supple Respiratory Exam: normal breath sounds, lungs clear, No respiratory distress Cardiovascular Exam: regular rate/rhythm, normal heart sounds, No edema Gastrointestinal/Abdomen Exam: soft, No tenderness, No mass Back Exam: normal inspection, No CVA tenderness, No vertebral tenderness Extremity Exam: normal inspection, normal range of motion Neurologic Exam: alert, oriented x 3, cooperative, normal mood/affect, nml cerebellar function, sensation nml, No motor deficits Skin Exam: normal color, warm, dry Lymphatic Exam: No adenopathy SpO2: 98 - Course Nursing assessment & vital signs reviewed: Yes EKG Interpreted by Me: A-fib, SVT Rhythm Strip: Atrial Fibrillation Ordered Tests: Active Orders 24 hr Category Date Time Status Hydrostatic Tubing Tester STAT Care 08/01/18 11:36 Active EKG-ER Only STAT Care 08/01/18 11:36 Active IV Insertion STAT Care 08/01/18 11:36 Active Oxygen-ED Only Nasal Cannula 2 lpm Care 08/01/18 11:36 Active CHEST 1 VIEW (PORTABLE) Stat Exams 08/01/18 12:55 Taken CBC W DIFF Stat Lab 08/01/18 12:11 Completed CMP Stat Lab 08/01/18 12:11 Completed D-DIMER QUANTITATION Stat Lab 08/01/18 12:11 Completed Manual Differential NC Stat Lab 08/01/18 12:11 Completed NT PRO BNP Stat Lab 08/01/18 12:11 Completed TROPONIN Q3H Lab 08/01/18 12:11 Completed TROPONIN Q3H Lab 08/01/18 14:45 Ordered TROPONIN Q3H Lab 08/01/18 17:45 Ordered TROPONIN Q3H Lab 08/01/18 20:45 Ordered TROPONIN Q3H Lab 08/01/18 23:45 Ordered Medication Summary Generic Name Dose Route Start Last Admin Trade Name Freq PRN Reason Stop Dose Admin Diltiazem HCl 100 mls @ 5 mls/hr 08/01/18 12:29 08/01/18 12:55 Cardizem Drip 100 Mg/100 Ml D5w IV 08/31/18 12:28 5 mg/hr .Q20H PRN 5 mls/hr HEART RATE/ A-FIB Administration Protocol 5 MG/HR Discontinued Medications Generic Name Dose Route Start Last Admin Trade Name Freq PRN Reason Stop Dose Admin Adenosine 6 mg 08/01/18 12:16 08/01/18 12:32 Adenocard Iv 6 Mg/2 Ml IV 08/01/18 12:17 6 mg STAT ONE Administration Adenosine 12 mg 08/01/18 12:16 08/01/18 12:32 Adenocard Iv 6 Mg/2 Ml IV 08/01/18 12:17 3 mg STAT ONE Administration Adenosine Confirm 08/01/18 12:16 Adenocard Iv 6 Mg/2 Ml Administered 08/01/18 12:17 Dose 12 mg IV .STK-MED ONE Diltiazem HCl 5 mg 08/01/18 12:29 08/01/18 12:55 Cardizem Iv 50 Mg/10 Ml IV 08/01/18 12:30 5 mg STAT ONE Administration Diltiazem HCl Confirm 08/01/18 12:36 Cardizem Iv 50 Mg/10 Ml Administered 08/01/18 12:37 Dose 50 mg IV .STK-MED ONE Enoxaparin Sodium 120 mg 08/01/18 12:41 08/01/18 13:06 Enoxaparin Sodium SQ 08/01/18 12:42 120 mg STAT STA Administration Enoxaparin Sodium Confirm 08/01/18 13:04 Enoxaparin Sodium Administered 08/01/18 13:05 Dose 120 mg SQ .STK-MED ONE Sodium Chloride 1,000 mls @ 999 mls/hr 08/01/18 11:36 08/01/18 12:12 Sodium Chloride 0.9% 1000 Ml IV 08/01/18 12:36 999 mls/hr .Q1H1M STA Administration Sodium Chloride Confirm 08/01/18 12:08 Sodium Chloride 0.9% 1000 Ml Administered 08/01/18 12:09 Dose 1,000 mls @ ud .ROUTE .STK-MED ONE Lab/Rad Data: Laboratory Result Diagrams 08/01/18 12:11 08/01/18 12:11 Laboratory Results 08/01/18 08/01/18 08/01/18 Range/Units 12:11 12:11 12:11 WBC (4.0-10.5) K/mm3 RBC (4.1-5.6) M/mm3 Hgb (12.5-18.0) gm/dl Hct (42-50) % MCV (78-100) fl MCH (26-32) pg MCHC (32-36) g/dl RDW (11.5-14.0) % Plt Count (150-450) K/mm3 MPV (6-9.5) fl Segmented Neutrophils (36.-66.) % Band Neutrophils (0.0-2.0) % Lymphocytes (Manual) (24-44) % Monocytes (Manual) (0.0-12.0) % Hypochromia Toxic Granulation Platelet Estimate (NORMAL) RBC Morphology Polychromasia Anisocytosis Microcytosis Schistocytes D-Dimer 4065 H* (215-500) ng/mL Sodium 137 (137-145) mmol/L Potassium 4.0 (3.5-5.1) mmol/L Chloride 102 (98-107) mmol/L Carbon Dioxide 26 (22-30) mmol/L Anion Gap 14.2 (5-15) MEQ/L BUN 11 (9-20) mg/dL Creatinine 0.57 L (0.66-1.25) mg/dL Estimated GFR > 60.0 ML/MIN Glucose 133 H (74-106) mg/dL Calcium 8.2 L (8.4-10.2) mg/dL Total Bilirubin 1.10 (0.2-1.3) mg/dL AST 149 H (17-59) U/L ALT 47 (0-50) U/L Alkaline Phosphatase 173 H (38-126) U/L Troponin I 0.029 (0.000-0.034) ng/mL NT-Pro-B Natriuret Pep 2000 H (0-900) pg/mL Serum Total Protein 6.3 (6.3-8.2) g/dL Albumin 2.9 L (3.5-5.0) g/dL 08/01/18 Range/Units 12:11 WBC 5.8 (4.0-10.5) K/mm3 RBC 3.35 L (4.1-5.6) M/mm3 Hgb 9.4 L (12.5-18.0) gm/dl Hct 30.1 L (42-50) % MCV 89.9 (78-100) fl MCH 28.0 (26-32) pg MCHC 31.2 L (32-36) g/dl RDW 20.5 H (11.5-14.0) % Plt Count 93 L (150-450) K/mm3 MPV 9.4 (6-9.5) fl Segmented Neutrophils 89 H (36.-66.) % Band Neutrophils 5 H (0.0-2.0) % Lymphocytes (Manual) 4 L (24-44) % Monocytes (Manual) 2 (0.0-12.0) % Hypochromia 1+ Toxic Granulation 1+ Platelet Estimate DECREASED (NORMAL) RBC Morphology ABNORMAL Polychromasia 1+ Anisocytosis 2+ Microcytosis 1+ Schistocytes 1+ D-Dimer (215-500) ng/mL Sodium (137-145) mmol/L Potassium (3.5-5.1) mmol/L Chloride (98-107) mmol/L Carbon Dioxide (22-30) mmol/L Anion Gap (5-15) MEQ/L BUN (9-20) mg/dL Creatinine (0.66-1.25) mg/dL Estimated GFR ML/MIN Glucose (74-106) mg/dL Calcium (8.4-10.2) mg/dL Total Bilirubin (0.2-1.3) mg/dL AST (17-59) U/L ALT (0-50) U/L Alkaline Phosphatase (38-126) U/L Troponin I (0.000-0.034) ng/mL NT-Pro-B Natriuret Pep (0-900) pg/mL Serum Total Protein (6.3-8.2) g/dL Albumin (3.5-5.0) g/dL - Progress Progress: unchanged Air Movement: good Blood Culture(s) Obtained: No Antibiotics given: No Will see patient in: other ([facility] Dr Ralph Vernon) Counseled pt/family regarding: lab results, diagnosis, need for follow-up, rad results - Departure Departure Disposition: Transfer ([facility] ER) Clinical Impression: Atrial fibrillation with RVR, Metastasis from esophageal cancer, D-dimer, elevated Condition: Fair Critical Care Time: Yes Critical Care Time(excluding separately billable procedures): 30-74 minutes Referrals: BRANDIE LANCASTER [Primary Care Provider] -
[2018-08-01] MEDS ORDERED: Sodium Chloride 0.9% 1000 ML 1,000 ML ONE (12:08)
[2018-08-01 12:14] LABS: Hematocrit 30.1 % (42-50); Hemoglobin 9.4 gm/dl (12.5-18.0); Mean Cell Volume 89.9 fl (78-100); Mean Corpuscular Hgb Concent. 31.2 g/dl (32-36); Mean Platelet Volume 9.4 fl (6-9.5); Platelet Count 93 K/mm3 (150-450); Red Blood Count 3.35 M/mm3 (4.1-5.6); Red Cell Distribution Width 20.5 % (11.5-14.0); White Blood Count 5.8 K/mm3 (4.0-10.5)
[2018-08-01] MEDS ORDERED: Adenocard IV 6 MG/2 ML IV ONE ×3 (12:16)
[2018-08-01] MEDS ORDERED: CARDIZEM DRIP 100 MG/100 ML D5W 100 ML IV PRN (12:29)
[2018-08-01] MEDS ORDERED: Cardizem IV 50 MG/10 ML IV ONE ×2 (12:29→12:36)
[2018-08-01 12:34] LABS: ALBUMIN 2.9 g/dL (3.5-5.0); ALKALINE PHOSPHATASE 173 U/L (38-126); ANION GAP 14.2 MEQ/L (5-15); BLOOD UREA NITROGEN 11 mg/dL (9-20); CHLORIDE 102 mmol/L (98-107); Calcium 8.2 mg/dL (8.4-10.2); Carbon Dioxide 26 mmol/L (22-30); Creatinine 1 0.57 mg/dL (0.66-1.25); Glucose 133 mg/dL (74-106); NT PRO BNP 2000 pg/mL (0-900); SGOT/AST 149 U/L (17-59); SGPT/ALT 47 U/L (0-50); SODIUM 137 mmol/L (137-145); Total Protein 6.3 g/dL (6.3-8.2)
[2018-08-01 12:36] LABS: ANISOCYTOSIS 2+; BAND 5 % (0.0-2.0); Hypochromia 1+; Lymphocytes 4 % (24-44); Microcytosis 1+; Monocyte 2 % (0.0-12.0); Neutrophils 89 % (36.-66.); Platelet Estimate DECREASED (NORMAL); Polychromasia 1+; Schistocytes 1+; Total Cells Counted 100; Toxic Granulation 1+
[2018-08-01] MEDS ORDERED: CARDIZEM DRIP 100 MG/100 ML D5W 100 ML IV ONE (12:36)
[2018-08-01] MEDS ORDERED: ENOXAPARIN SODIUM SQ STA (12:41)
[2018-08-01] MEDS ORDERED: ENOXAPARIN SODIUM SQ ONE (13:04)
[2018-08-01 13:53] VITALS: BP 115/78; PULSE 115; O2SAT 96
--- NOTE | 2018-08-01 20:14 | XRAY ---
Indication: Tachycardia. Palpitations. Comparison: July 30, 2018. Portable chest remains clear. Heart and mediastinal structures within normal limits again with right Port-A-Cath. No new/acute findings.
== END 2018-08-01 14:24 | disposition short-term general hospital (02) ==
LOC: ED 11:10
DX: I48.2 Chronic atrial fibrillation (principal); C79.9 Secondary malignant neoplasm of unspecified site; C78.89 Secondary malignant neoplasm of other digestive organs; R79.1 Abnormal coagulation profile; I10 Essential (primary) hypertension; I25.10 Atherosclerotic heart disease of native coronary artery without angina pectoris; Z79.899 Other long term (current) drug therapy
CPT/HCPCS: 36000; 36415; 71045; 80053; 83880; 84484; 85025; 85379; 93005; 93041; 96360; 96365; 96372; 96374; 96375; 99285; 99291; J0153; J1650